=== PATIENT | female | born 1950 | race Hispanic/Latino ===

== ENCOUNTER → 2019-07-14 | Outpatient (CLI) | payer MEDICARE, BC ==
[~2019-07-14] MED LIST: ALPRAZOLAM0.25 MG PO; AMITIZA24 MCG PO; AMLODIPINE BESYL5 MG PO; DICYCLOMINE HCL20 MG PO; NEXIUM40 MG PO; PANTOPRAZOLE SO40 MG PO; ROPINIROLE HC0.25 MG PO; SUCRALFATE1 GM PO; ZOFRAN ODT4 MG PO
--- NOTE | 2019-07-14 12:05 | Diagnostic Imaging Report ---
MRI SPINE LUMBAR WO HISTORY: Low back and bilateral knee pain COMPARISON: Report from CT of the abdomen and pelvis dated 02/27/2017 and MRI of the thoracic spine 02/28/2017 (images not available) TECHNIQUE: Sagittal T1, sagittal T2, sagittal STIR, axial T2, coronal T2, and axial proton density weighted images of the lumbar spine were obtained without contrast. DISCUSSION: Number of non-rib bearing lumbar vertebral bodies: 5. Alignment: Normal lordosis. No scoliosis. Vertebrae: No evidence for fracture or neoplasm. Small nodular T1 hyperintense lesion in the L1 vertebral body is likely a benign hemangioma. Conus medullaris: Normal, ends at L1 Cauda equina: No masses or arachnoiditis. Posterior paraspinal muscles: Well preserved. Posterior incision signal changes are present Soft tissues: No signal abnormalities. Mild to moderate multilevel disc degeneration is most prominent at L5-S1. Nonspecific minimal multilevel inflammatory endplate changes are most prominent on the right at L4-L5. There is a questionable annular fissure along the anterior aspect of the L5-S1 disc. T12-L1: Patent canal and foramina. L1-L2: Patent canal and foramina. L2-L3: Disc bulge without significant canal or foraminal stenosis. L3-L4: Mild canal stenosis due to disc bulge and ligamentum flavum thickening. No significant foraminal stenosis. L4-L5: Mild canal stenosis due to disc bulge and ligamentum flavum thickening. No significant foraminal stenosis. There is mild periarticular edema along the right L4-L5 facet joint L5-S1: Apparent laminectomy changes. Moderate bilateral foraminal stenoses due to disc bulge and facet arthrosis. No significant canal stenosis. IMPRESSION: 1. Mild to moderate multilevel disc degeneration, most prominent at L5-S1. Nonspecific minimal multilevel inflammatory endplate changes, most prominent on the right at L4-L5. 2. Apparent laminectomy changes at L5-S1. 3. Mild degenerative canal stenoses at L3-L4 and L4-L5. 4. Moderate bilateral L5-S1 degenerative foraminal stenoses. 5. Possible mild right L4-L5 facet synovitis. Signed by: Dr. James Echavarria M.D. on 07/14/2019 12:01 PM
== END ==
LOC: MRI 09:59
PROVIDERS: ATTEND Family Medicine
DX: M54.5 Low back pain (principal); M54.16 Radiculopathy, lumbar region; M51.37 Other intervertebral disc degeneration, lumbosacral region
CPT/HCPCS: 72148

== ENCOUNTER 2021-08-24 14:06 | Outpatient (RCR) | payer MEDICARE, OTHER | END 2021-08-27 | LOC: PT 14:06 | PROVIDERS: ATTEND Specialist | DX: M17.0 Bilateral primary osteoarthritis of knee (principal) ==